=== PATIENT | male | born 1945 ===

== ENCOUNTER 2019-01-12 13:26 | Emergency (ER) | payer MEDICARE, MEDICAID ==
[~2019-01-12] VITALS: Ht 167.6 cm; Wt 90.7 kg
[2019-01-12 15:04] LABS: Calcium 8.7 mg/dL (8.5-10.1); Potassium 3.4 mmol/L (3.5-5.1)
[2019-01-12 15:09] LABS: Albumin 3.7 g/dL (3.4-5.0); BUN/Creatinine Ratio 19.7; Bilirubin, Total 0.5 mg/dL (0.2-1.0); Total Protein 7.9 g/dL (6.4-8.2)
[2019-01-12] MEDS ORDERED: SODIUM CHLORIDE 0.9% 500 ML IV ONE (15:47)
[2019-01-12 15:56] LABS: Hematocrit 45.3 % (41.0-53.0); Hemoglobin 15.6 g/dL (13.5-17.5); Mean Corpuscular Hemoglobin 32.1 pg (28.0-32.0); Mean Corpuscular Hgb Conc. 34.5 g/dL (32.0-36.0); Mean Corpuscular Volume 93.2 fL (80.0-100.0); Platelet Count (auto) 206 10^3/uL (140-450); Red Blood Cells 4.86 10^6/uL (4.5-5.90); Red Cell Distribution Width 13.3 % (11.8-14.3); White Blood Cell 6.1 10^3/uL (4.4-10.8)
[2019-01-12 16:07] LABS: Band Neutrophils % (manual) 0; Basophils % (manual) 0 (0.0-2.0); Blast Cells 0; Metamyelocytes % 0; Myelocytes % 0; Promyelocytes % 0; Reactive Lymphocytes 0
[2019-01-12 16:23] LABS: Magnesium 2.6 mg/dL (1.6-2.6)
[2019-01-12 16:55] LABS: INR 0.97 (0.9-1.15); Partial Thromboplastin Time 26.8 sec (23.78-33.04); Prothrombin Time 10.4 sec (9.27-12.13)
[2019-01-12 19:01] LABS: Eosinophils % (manual) 5 (0-7); Lymphocytes % (manual) 27 (10.0-50.0); Monocytes % (manual) 18 (0-12)
[2019-01-12 19:30] VITALS: BP 149/82
== END 2019-01-12 19:32 | disposition home or self-care (01) ==
LOC: ER 13:33
DX: J20.9 Acute bronchitis, unspecified (principal); E78.5 Hyperlipidemia, unspecified; I10 Essential (primary) hypertension; I25.2 Old myocardial infarction
CPT/HCPCS: 36415; 71046; 80053; 83735; 84484; 85007; 85027; 85610; 85730